=== PATIENT | male | born 1985 | race Caucasian/White ===

== ENCOUNTER → 2017-04-06 | Outpatient (CLI) | payer BC, OTHER ==
[~2017-04-06] MED LIST: CLX20 PO
--- NOTE | 2017-04-06 11:57 | DIAGNOSTIC IMAGING REPORT ---
L KNEE 3 VIEWS HISTORY: 32 years-old Male KNEE PAIN acute left-sided knee pain status post injury. COMPARISON: None available TECHNIQUE: 3 views of the left knee FINDINGS: No acute fracture, dislocation or significant degenerative changes. There is mild spurring at the quadriceps insertion site along the superior patella. Small joint effusion is noted with moderate soft tissue swelling about the knee. No opaque foreign body. IMPRESSION: 1. No acute fracture or dislocation. 2. Small joint effusion noted with moderate soft tissue swelling. The above report was generated using voice recognition software. It may contain grammatical, syntax or spelling errors. Electronically signed by: Juan J Thorne M.D. 04/06/2017 11:55 AM Dictated Date/Time: 04/06/2017 11:54 AM
== END | disposition home or self-care (01) ==
LOC: C.RAD1850 11:15
PROVIDERS: ATTEND Nurse Practitioner Adult Health
DX: M25.562 Pain in left knee (principal)